=== PATIENT | male | born 1960 | race Caucasian/White ===

== ENCOUNTER 2016-08-15 13:57 | Emergency (ER) | payer OTHER, MEDICAID ==
[~2016-08-15] VITALS: Ht 170.2 cm; Wt 75.7 kg
[~2016-08-15 13:57] MED LIST: NORCO 10/325 MG1 TAB PO
[2016-08-15 14:02] VITALS: BP 118/75
--- NOTE | 2016-08-15 14:08 | NUR ---
Patient ambulated to bed 3. RN evaluating patient at bedside.
[2016-08-15] MEDS ORDERED: HYDROmorphone PFS 2 MG/ML SYR IM ONE (14:25)
--- NOTE | 2016-08-15 14:25 | NUR ---
PT PRESENTS TO ER W/C/O LBP RADIATING DOWN AYLIN LE. HX ANXIETY AND SCIATICA; DENIES N/V/D; SKIN IS PINK/WARM/DRY; AAOX4 WITH EVEN AND STEADY GAIT; LUNGS CLEAR BL; HR EVEN AND REGULAR; PT DENIES ANY FEVER, CP, SOB, OR COUGH AT THIS TIME; PATIENT STATES PAIN OF 9/10 AT THIS TIME; VSS; PATIENT POSITIONED FOR COMFORT; HOB ELEVATED; BEDRAILS UP X2; BED DOWN. ER MD MADE AWARE OF PT STATUS.
[2016-08-15 15:02] VITALS: BP 102/71
--- NOTE | 2016-08-15 15:02 | NUR ---
Patient discharged with v/s stable. Written and verbal after care instructions given and explained. Patient alert, oriented and verbalized understanding of instructions. Ambulatory with OWN CANE ASSIST. All questions addressed prior to discharge. ID band removed. Patient advised to follow up with PMD. Rx of XANAX, OXYCODONE given. Patient educated on indication of medication including possible reaction and side effects. Opportunity to ask questions provided and answered.
== END 2016-08-15 15:02 | disposition home or self-care (01) ==
LOC: MED 13:57
DX: M54.42 Lumbago with sciatica, left side (principal); M54.41 Lumbago with sciatica, right side; G89.29 Other chronic pain; R03.0 Elevated blood-pressure reading, without diagnosis of hypertension
CPT/HCPCS: 96372; 99283; J1170

== ENCOUNTER 2016-08-21 01:00 | Emergency (ER) | payer OTHER ==
[~2016-08-21] VITALS: Ht 170.2 cm; Wt 75.7 kg
[2016-08-21 01:15] VITALS: BP 131/77
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
--- NOTE | 2016-08-21 02:48 | NUR ---
TO ER BED 4
--- NOTE | 2016-08-21 03:13 | NUR ---
Patient being evaluated by physician DR MEDEL at bedside.
[2016-08-21] MEDS ORDERED: KETOROLAC 30 MG/ML VIAL IM ONE (03:35)
[2016-08-21] MEDS ORDERED: HYDROcodone/APAP 10/325 MG 1 TAB TAB PO ONE (03:35)
[2016-08-21] MEDS ORDERED: DIAZEPAM 5 MG TAB PO ONE (03:35)
[2016-08-21 05:08] VITALS: BP 126/85
--- NOTE | 2016-08-21 05:08 | NUR ---
Patient discharged with v/s stable. Written and verbal after care instructions given and explained. Patient alert, oriented and verbalized understanding of instructions. Ambulatory with steady gait. All questions addressed prior to discharge. ID band removed. Patient advised to follow up with PMD. Rx of VALIUM given. Patient educated on indication of medication including possible reaction and side effects. Opportunity to ask questions provided and answered.
== END 2016-08-21 05:08 | disposition home or self-care (01) ==
LOC: MED 01:00
DX: G89.29 Other chronic pain (principal); M54.16 Radiculopathy, lumbar region
CPT/HCPCS: 96372; 99283; J1885

== ENCOUNTER 2018-04-26 17:46 | Emergency (ER) | payer OTHER, MEDICAID ==
[~2018-04-26] VITALS: Ht 167.6 cm; Wt 76.2 kg
[~2018-04-26 17:46] MED LIST changes: +ACET-787 PO; +ALBU0.0912 IH; +ALPR0.5T2 PO; +CARV6.25 PO; +FAMO-90 PO; +FIO PO; +FLUO10CA21 PO; +GABA300C PO; +LISI10TA11 PO; +NABU500T3 PO; -NORCO 10/325 MG1 TAB PO; +OMEP20TC12 PO; +OXYC5CAP26 PO; +SENN-73 PO
[2018-04-26 17:51] VITALS: BP 152/79
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
--- NOTE | 2018-04-26 19:05 | NUR ---
Pt report given to GARRISON JENKINS . Transfer of care at this time.
--- NOTE | 2018-04-26 19:08 | NUR ---
ASSUMED CARE OF PATIENT FROM GARRISON SARAH
[2018-04-26] MEDS ORDERED: LORazepam 2 MG/ML VIAL IM ONE (19:20)
[2018-04-26 19:52] VITALS: BP 146/80
== END 2018-04-26 19:52 | disposition home or self-care (01) ==
LOC: MED 17:46
DX: F41.0 Panic disorder [episodic paroxysmal anxiety] (principal); I10 Essential (primary) hypertension; G89.29 Other chronic pain; M54.9 Dorsalgia, unspecified; Z79.899 Other long term (current) drug therapy
CPT/HCPCS: 96372; 99284; J2060

== ENCOUNTER 2022-02-02 19:10 | Emergency (ER) | payer OTHER, MEDICAID ==
[~2022-02-02] VITALS: Ht 167.6 cm; Wt 77.1 kg
[~2022-02-02 19:10] MED LIST changes: -ACET-787 PO; +HYDR-5191 PO; -LISI10TA11 PO; +LISI10TA30 PO; -NABU500T3 PO; +OMEP-278 PO; -OMEP20TC12 PO; +[UNRECOGNIZED DRUG - CODE] PO
[2022-02-02 19:21] VITALS: BP 137/75
--- NOTE | 2022-02-02 19:28 | NUR ---
TO LOBBY FOLLOWING TRIAGE
--- NOTE | 2022-02-02 20:25 | NUR ---
Called no show in lobby and outside.
--- NOTE | 2022-02-02 21:54 | NUR ---
PATIENT LEFT WITHOUT BEING SEEN BY DR. Spencer. NO FURTHER CARE PROVIDED FOR PATIENT.
== END 2022-02-02 21:54 | disposition left against medical advice (07) ==
LOC: MED 19:10
DX: M54.50 Low back pain, unspecified (principal); Z53.21 Procedure and treatment not carried out due to patient leaving prior to being seen by health care provider

== ENCOUNTER 2022-03-11 11:05 | Emergency (ER) | payer OTHER ==
[~2022-03-11] VITALS: Ht 167.6 cm; Wt 77.1 kg
[2022-03-11 11:31] VITALS: BP 164/93
--- NOTE | 2022-03-11 11:43 | NUR ---
PT W/C ASSISTED TI BED 12.
[2022-03-11] MEDS ORDERED: DEXAMETHASONE 10 MG/ML VIAL IM ONE (11:55)
[2022-03-11] MEDS ORDERED: KETOROLAC 60 MG/2 ML VIAL IM ONE (11:55)
[2022-03-11] MEDS ORDERED: LIDOCAINE 5% 1 EA PATCH TP ONE (12:01)
--- NOTE | 2022-03-11 12:28 | NUR ---
61/M PRESENTS TO ED WITH C/O RIGHT LOWER BACK PAIN RADIATING DOWN RIGHT LOWER LEG X5 DAYS. PATIENT DENIES INJURY OR TRAUMA, STATES PAIN CAME ON SUDDENLY AND HAS BEEN WORSENING WITH AMBULATION. PATIENT REPORTS TAKING PAIN MEDS WITH MILD RELIEF OF SYMPTOMS. PATIENT W/C ASSISTED UPON ARRIVAL.
[2022-03-11] MEDS ORDERED: LID5T TP (13:04)
[2022-03-11] MEDS ORDERED: DICL75EC11 PO (13:04)
--- NOTE | 2022-03-11 14:00 | NUR ---
Patient discharged with v/s stable. Written and verbal after care instructions ABOUOT RADICULAR PAIN AND SCIATICA given and explained. Patient alert, oriented and verbalized understanding of instructions. Ambulatory with steady gait. All questions addressed prior to discharge. ID band removed. Patient advised to follow up with PMD. Rx of DICLOFENAC SODIUM AND LIDODERM 5% PATCH given. Patient educated on indication of medication including possible reaction and side effects. Opportunity to ask questions provided and answered.
[2022-03-12] MEDS ORDERED: LIDOCAINE 5% 1 EA PATCH TP SCH (09:00)
== END 2022-03-11 14:00 | disposition home or self-care (01) ==
LOC: MED 11:05
DX: M54.31 Sciatica, right side (principal); M54.50 Low back pain, unspecified; F41.9 Anxiety disorder, unspecified; I10 Essential (primary) hypertension; Z79.899 Other long term (current) drug therapy
CPT/HCPCS: 96372; 99284; J1100; J1885